=== PATIENT | female | born 1990 | race African-American/Black ===

== ENCOUNTER 2018-06-08 11:46 | Emergency (ER) | payer OTHER ==
[2018-06-08] MEDS ORDERED: LORazepam 2 MG/ML VIAL ONE (12:13)
[2018-06-08] MEDS ORDERED: HALOPERIDOL 5 MG TAB PO ONE (13:00)
--- NOTE | 2018-06-08 13:25 | EDPHYS ---
Physician Documentation [facility] Name: Regi Schafer Age: 27 yrs Sex: Female : 1990 Arrival Date: 06/08/2018 Time: 11:47 Bed 17 Private MD: ED Physician Santy Vivar HPI: 06/08 12:02 This 27 yrs old Black Female presents to ER via Ambulatory with complaints of Psych jr8 Problem. 12:02 The patient presents to the emergency department with anxiety, psychosis, has jr8 experienced auditory hallucinations. Onset: The symptoms/episode began/occurred gradually, 2 day(s) ago. Past psychiatric history: Prior diagnosis: bipolar disorder, schizophrenia. Associated signs and symptoms: The patient has no apparent associated signs or symptoms. Severity of symptoms: At their worst the symptoms were moderate in the emergency department the symptoms are unchanged. The patient has experienced similar episodes in the past, a few times. The patient has not recently seen a physician. Patient stated that she is almost out of her meds and has been skipping doses to try and stay on them as long as possible. Stated that she has money to get new medications but not enough for her psych appointment to get them refilled. Hearing voices to tell her to act out. Denies SI/HI or voices telling her to do such. 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 tw2 Historical: - Allergies: 11:51 No Known Allergies; ss - Home Meds: 11:51 trazodone Oral [Active]; Lamictal 100 mg Oral tab 1 tab once daily [Active]; Trileptal ss oral oral [Active]; Seroquel 100 mg Oral tab 1 tab 3 times per day [Active]; 13:11 Concerta 18 mg oral tr24 1 tab once daily [Active]; tw2 - PMHx: 11:51 Bipolar disorder; Schizophrenia; Depression; Anxiety; Seizures; ss - Immunization history:: Adult Immunizations up to date. - Social history:: Smoking status: Patient uses tobacco products, 1 pp week. - Ebola Screening: : Patient denies exposure to infectious person Patient denies travel to an Ebola-affected area in the 21 days before illness onset. ROS: 12:02 Constitutional: Negative for fever, chills, and weight loss. jr8 12:02 Psych: Positive for anxiety, auditory hallucinations, insomnia, Negative for homicidal ideation, suicide gesture, suicidal ideation. 12:02 All other systems are negative. Exam: 12:02 Eyes: Pupils equal round and reactive to light, extra-ocular motions intact. Lids and jr8 lashes normal. Conjunctiva and sclera are non-icteric and not injected. Cornea within normal limits. Periorbital areas with no swelling, redness, or edema. ENT: Nares patent. No nasal discharge, no septal abnormalities noted. Tympanic membranes are normal and external auditory canals are clear. Oropharynx with no redness, swelling, or masses, exudates, or evidence of obstruction, uvula midline. Mucous membranes moist. Neck: Trachea midline, no thyromegaly or masses palpated, and no cervical lymphadenopathy. Supple, full range of motion without nuchal rigidity, or vertebral point tenderness. No Meningismus. Cardiovascular: Regular rate and rhythm with a normal S1 and S2. No gallops, murmurs, or rubs. Normal PMI, no JVD. No pulse deficits. Respiratory: Lungs have equal breath sounds bilaterally, clear to auscultation and percussion. No rales, rhonchi or wheezes noted. No increased work of breathing, no retractions or nasal flaring. Abdomen/GI: Soft, non-tender, with normal bowel sounds. No distension or tympany. No guarding or rebound. No evidence of tenderness throughout. Back: No spinal tenderness. No costovertebral tenderness. Full range of motion. Skin: Warm, dry with normal turgor. Normal color with no rashes, no lesions, and no evidence of cellulitis. MS/ Extremity: Pulses equal, no cyanosis. Neurovascular intact. Full, normal range of motion. Neuro: Awake and alert, GCS 15, oriented to person, place, time, and situation. Cranial nerves II-XII grossly intact. Motor strength 5/5 in all extremities. Sensory grossly intact. Cerebellar exam normal. Normal gait. 12:02 Psych: Behavior/mood is anxious, Affect is animated, Oriented to person, place, time, Patient has no thoughts/intents to harm self or others. Judgement / Insight is normal. Memory is normal. Delusions/hallucinations are present and described as non specific voices telling her to act out . Vital Signs: 11:51 BP 127 / 86; Pulse 62; Resp 23; Temp 98.3(O); Pulse Ox 98% on R/A; Height 5 ft. 5 in. ss (165.10 cm); Pain 8/10; 13:29 BP 131 / 62; Pulse 61; Resp 17; Pulse Ox 99% on R/A; Pain 0/10; tw2 MDM: 11:48 Patient medically screened. jr8 12:55 Data reviewed: vital signs, nurses notes, and as a result, I will discharge patient. jr8 Data interpreted: Pulse oximetry: on room air is 98 %. Interpretation: normal. Counseling: I had a detailed discussion with the patient and/or guardian regarding: the historical points, exam findings, and any diagnostic results supporting the discharge/admit diagnosis, the need for outpatient follow up, a psychiatrist, to return to the emergency department if symptoms worsen or persist or if there are any questions or concerns that arise at home. Response to treatment: the patient's symptoms have markedly improved after treatment. ED course: patient resting comfortably in exam room. Voices has calmed down. Will refill meds for her. Administered Medications: 12:07 Drug: Ativan 2 mg Route: IM; Site: right deltoid; ss 13:25 Follow up: Response: No adverse reaction; Marked relief of symptoms tw2 12:15 Drug: Haldol 5 mg Route: PO; iw 13:28 Follow up: Response: No adverse reaction; Marked relief of symptoms tw2 Disposition: 14:23 Co-signature as Attending Physician, Santy Vivar MD. pa2 Disposition: 06/08/18 13:25 Discharged to Home. Impression: Schizophrenia, Auditory hallucinations. - Condition is Stable. - Discharge Instructions: Schizophrenia, Psychosis. - Prescriptions for Seroquel 100 mg Oral tablet - take 1 tablet by ORAL route 3 times per day; 90 tablet. Trileptal 600 mg Oral tablet - take 1 tablet by ORAL route At bedtime; 30 tablet. Lamictal 100 mg Oral Tablet - take 1 tablet by ORAL route once daily; 30 tablet. trazodone 50 mg Oral tablet - take 1 tablet by ORAL route At bedtime; 30 tablet. - Medication Reconciliation Form, Thank You Letter, Antibiotic Education, Prescription Opioid Use form. - Follow up: Private Physician; When: 1 week; Reason: Recheck today's complaints, Continuance of care, Re-evaluation by your physician. - Problem is new. - Symptoms have improved. Signatures: Nathalie Camargo, RN RN Lyn Mederos RN RN Guerrero Calixto PA PA jr8 Lesa Armstrong RN RN tw2 Santy Vivar MD MD ma2 Corrections: (The following items were deleted from the chart) 13:11 11:51 Home Meds: CONCERTA Oral; ss tw2 13:31 13:25 06/08/2018 13:25 Discharged to Home. Impression: Schizophrenia; Auditory tw2 hallucinations. Condition is Stable. Prescriptions for Seroquel 100 mg Oral tablet - take 1 tablet by ORAL route 3 times per day; 90 tablet, Trileptal 600 mg Oral tablet - take 1 tablet by ORAL route At bedtime; 30 tablet, Lamictal 100 mg Oral Tablet - take 1 tablet by ORAL route once daily; 30 tablet, trazodone 50 mg Oral tablet - take 1 tablet by ORAL route At bedtime; 30 tablet. and Forms are Medication Reconciliation Form, Thank You Letter, Antibiotic Education, Prescription Opioid Use. Follow up: Private Physician; When: 1 week; Reason: Recheck today's complaints, Continuance of care, Re-evaluation by your physician. Problem is new. Symptoms have improved. jr8
--- NOTE | 2018-06-08 13:25 | ER ---
Nurse's Notes [facility] Name: Regi Schafer Age: 27 yrs Sex: Female : 1990 Arrival Date: 06/08/2018 Time: 11:47 Bed 17 Private MD: Diagnosis: Schizophrenia;Auditory hallucinations Presentation: 06/08 11:47 Presenting complaint: EMS states: Patient states that she is hearing voices telling her ss to act out and not be herself, but not to hurt herself. Denies SI/ HI. Pt reports that she no longer has insurance so she has been taking her medication every other day, but over the past 2-3 days she has not taken anything so now she is hearing voices. Transition of care: patient was not received from another setting of care. Onset of symptoms was June 07, 2018. Risk Assessment: Do you want to hurt yourself or someone else? Patient reports no desire to harm self or others. Initial Sepsis Screen: Does the patient meet any 2 criteria? No. Patient's initial sepsis screen is negative. Does the patient have a suspected source of infection? No. Patient's initial sepsis screen is negative. Care prior to arrival: None. 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 tw2 Historical: - Allergies: 11:51 No Known Allergies; ss - Home Meds: 11:51 trazodone Oral [Active]; Lamictal 100 mg Oral tab 1 tab once daily [Active]; Trileptal ss oral oral [Active]; Seroquel 100 mg Oral tab 1 tab 3 times per day [Active]; 13:11 Concerta 18 mg oral tr24 1 tab once daily [Active]; tw2 - PMHx: 11:51 Bipolar disorder; Schizophrenia; Depression; Anxiety; Seizures; ss - Immunization history:: Adult Immunizations up to date. - Social history:: Smoking status: Patient uses tobacco products, 1 pp week. - Ebola Screening: : Patient denies exposure to infectious person Patient denies travel to an Ebola-affected area in the 21 days before illness onset. Screenin:50 Abuse screen: Denies threats or abuse. Denies injuries from another. Nutritional ss screening: No deficits noted. Tuberculosis screening: Never had TB. Fall Risk None identified. Assessment: 11:47 General: Appears distressed, uncomfortable, Behavior is cooperative, anxious, Reports ss using medication sparingly. Has not taken any medication for the past few days. Denies fever, feeling ill, fatigue, chills. Pain: Complains of pain in head in entire Pain currently is 8 out of 10 on a pain scale. Quality of pain is described as throbbing, Pain began last night Is continuous. Neuro: Level of Consciousness is awake, alert, obeys commands, Oriented to person, place, time, situation. Neuro: Reports auditory hallucinations. Denies SI/ HI . Pt states she has multiple personalities, but she is doing her best to keep Regi in charge. . Cardiovascular: Heart tones S1 S2 present Capillary refill < 3 seconds is brisk in bilateral fingers. Respiratory: Airway is patent Respiratory effort is even, unlabored, Respiratory pattern is regular, symmetrical. GI: Patient currently denies abdominal pain, diarrhea, nausea, vomiting. : No signs and/or symptoms were reported regarding the genitourinary system. EENT: Nares are clear Oral mucosa is moist. Denies nasal congestion, nasal discharge. Derm: Skin is intact, is healthy with good turgor, Skin is dry, Skin is pink, warm \T\ dry. normal. Musculoskeletal: Circulation, motion, and sensation intact. Range of motion: intact in all extremities, Swelling absent. 12:30 Reassessment: Patient appears in no apparent distress at this time. Patient and/or ss family updated on plan of care and expected duration. Pain level reassessed. Patient is alert, oriented x 3, equal unlabored respirations, skin warm/dry/pink. pt appears much more calm at this time. States that her mother is on the way to visit her. Patient states feeling better. Patient states symptoms have improved. 13:29 Reassessment: Patient appears in no apparent distress at this time. Patient and/or tw2 family updated on plan of care and expected duration. Pain level reassessed. Patient is alert, oriented x 3, equal unlabored respirations, skin warm/dry/pink. Patient states feeling better. Patient states symptoms have improved. Vital Signs: 11:51 BP 127 / 86; Pulse 62; Resp 23; Temp 98.3(O); Pulse Ox 98% on R/A; Height 5 ft. 5 in. ss (165.10 cm); Pain 8/10; 13:29 BP 131 / 62; Pulse 61; Resp 17; Pulse Ox 99% on R/A; Pain 0/10; tw2 ED Course: 11:47 Patient arrived in ED. ss 11:48 Guerrero Calixto PA is PHCP. jr8 11:48 Santy Vivar MD is Attending Physician. jr8 11:49 Triage completed. ss 11:50 Patient has correct armband on for positive identification. Bed in low position. Call ss light in reach. Side rails up X 1. 11:50 Patient maintains SpO2 saturation greater than 95% on room air. ss 11:51 Arm band placed on right wrist. 11:56 Lyn Mederos, ALENA is Primary Nurse. 13:30 No provider procedures requiring assistance completed. Patient did not have IV access tw2 during this emergency room visit. Administered Medications: 12:07 Drug: Ativan 2 mg Route: IM; Site: right deltoid; 13:25 Follow up: Response: No adverse reaction; Marked relief of symptoms tw2 12:15 Drug: Haldol 5 mg Route: PO; 13:28 Follow up: Response: No adverse reaction; Marked relief of symptoms tw2 Outcome: 13:25 Discharge ordered by . jr8 13:30 Discharged to home ambulatory, with family. tw2 13:30 Condition: stable 13:30 Discharge instructions given to patient, family, Instructed on discharge instructions, follow up and referral plans. no drinking with medication, no driving heavy equipment, medication usage, Demonstrated understanding of instructions, follow-up care, medications, Prescriptions given X 4. 13:31 Patient left the ED. tw2 Signatures: Nathalie Camargo RN RN Lyn Mederos RN RN Guerrero Calixto PA PA jr8 Lesa Armstrong RN RN tw2 Corrections: (The following items were deleted from the chart) 13:11 11:51 Home Meds: CONCERTA Oral; tw2
[2018-06-08 13:43] VITALS: TEMP 98.3
[2018-06-08 13:45] VITALS: BP 131/62; O2SAT 99
== END 2018-06-08 13:31 | disposition home or self-care (01) ==
LOC: ER 11:46
DX: F20.9 Schizophrenia, unspecified (principal); F31.9 Bipolar disorder, unspecified; F32.9 Major depressive disorder, single episode, unspecified; F41.9 Anxiety disorder, unspecified; G40.909 Epilepsy, unspecified, not intractable, without status epilepticus; Z72.0 Tobacco use
CPT/HCPCS: 96372; 99284

== ENCOUNTER 2019-05-04 19:53 | Inpatient (IN) | payer SELFPAY, OTHER ==
[~2019-05-04 19:53] MED LIST: LORazepam 2 MG/ML VIAL ONE
[2019-05-04] MEDS ORDERED: LORazepam 2 MG/ML VIAL ONE ×2 (20:07→20:42)
[2019-05-04] MEDS ORDERED: NA CHLORIDE 0.9% 2,000 ML ONE (20:21)
[2019-05-04 20:37] LABS: Basophils % 0.6 % (0-1.3); Hematocrit 42.7 % (36.0-45.0); Lymphocytes % 28.3 % (15.3-44.8); MPV 10.3 fL (7.6-11.3); RBC Red Blood Cell Count 4.62 M/uL (3.86-4.86)
[2019-05-04 20:42] LABS: Protime INR 0.96
[2019-05-04] MEDS ORDERED: FOSPHENYTOIN PE 100 MG/2 ML VIAL ONE (20:44)
[2019-05-04] MEDS ORDERED: NA CHLORIDE 0.9% 100 ML IV ONE (20:46)
[2019-05-04] MEDS ORDERED: FOSPHENYTOIN PE 500 MG/10 ML VIAL ONE (20:47)
--- NOTE | 2019-05-04 21:05 | RAD REPORT ---
EXAM DESCRIPTION: RAD - Chest Single View - 05/04/2019 8:55 pm CLINICAL HISTORY: DYSPNEA Chest pain. COMPARISON: No comparisons FINDINGS: Portable technique limits examination quality. The lungs are grossly clear. The heart is normal in size. No displaced fractures. IMPRESSION: No acute intrathoracic process suspected.
[2019-05-04 21:07] LABS: ALT/SGPT 10 U/L (12-78); AST/SGOT 11 U/L (15-37); Albumin 3.4 g/dL (3.4-5.0); Alkaline Phosphatase 68 U/L (45-117); BUN Blood Urea Nitrogen 8 mg/dL (7-18); Bicarbonate 24 mmol/L (21-32); Bilirubin Direct 0.1 mg/dL (0-0.2); Bilirubin Total 0.5 mg/dL (0.2-1.0); Creatine Phosphokinase 61 U/L (26-192); Glucose Level 70 mg/dL (74-106); Potassium 3.5 mmol/L (3.5-5.1); Protein, Total 7.2 g/dL (6.4-8.2); Sodium Level 142 mmol/L (136-145); Troponin (Emerg Dept Use Only) < 0.02 ng/mL (0.0-0.045)
[2019-05-04] MEDS ORDERED: D5 0.9 NS 1,000 ML IV ONE (22:02)
[2019-05-04] MEDS ORDERED: D50W 25 GM/50 ML SYRINGE/VIAL IV ONE (22:03)
--- NOTE | 2019-05-04 22:04 | ER ---
Nurse's Notes [facility] Name: Regi Schafer Age: 28 yrs Sex: Female : 1990 Arrival Date: 05/04/2019 Time: 19:58 Bed 2 Private MD: Diagnosis: Epilepsy and recurrent seizures;Fever, unspecified;Hypoglycemia, unspecified Presentation: 05/03 19:45 Chief complaint: EMS states: Called for patient having chest pain, witnessed seizure x3 lp1 by EMS; Patient post ictal per EMS, with agonal breathing; Per EMS, family states patient was in [place] about 2 weeks ago, has had symptoms of dry cough, chest pain, shortness of breath, fever; On arrival, patient improved. 19:45 Coronavirus screen: Surgical mask placed on patient. Patient moved to private room, lp1 placed in contact and droplet isolation with eye protection until further assessment. Patient reports a cough. Patient reports shortness of breath or difficulty breathing. Ebola Screen: No symptoms or risks identified at this time. Initial Sepsis Screen: Does the patient meet any 2 criteria? No. Patient's initial sepsis screen is negative. Does the patient have a suspected source of infection? No. Patient's initial sepsis screen is negative. Risk Assessment: Do you want to hurt yourself or someone else? Patient reports no desire to harm self or others. 19:45 Method Of Arrival: EMS: [facility] lp1 19:45 Acuity: ASH 2 lp1 Historical: - Allergies: 20:37 No Known Allergies; lp1 - Home Meds: 20:37 Dilantin Oral [Active]; Xanax Oral [Active]; lp1 - PMHx: 20:37 Anxiety; Bipolar disorder; Depression; Schizophrenia; Seizures; lp1 - Immunization history:: Adult Immunizations up to date. Screenin:00 Abuse screen: Denies threats or abuse. Nutritional screening: No deficits noted. jb4 Tuberculosis screening: No symptoms or risk factors identified. Fall Risk Secondary diagnosis (15 points) seizures, IV access (20 points). Total Andrews Fall Scale indicates Low Risk Score (25-44 pts). Fall prevention measures have been instituted. Side Rails Up X 2 Placed close to Nursing Station Frequent Obs/Assesments occuring. Assessment: 20:00 Reassessment: Patient appears more calm at this time; states "I've been taking my lp1 Dilantin every other day since I'm running low"; Provider notified. 20:00 General: Appears in no apparent distress. uncomfortable, Behavior is cooperative, jb4 anxious, confused... Pain: Complains of pain in chest Pain does not radiate. Pain currently is 5 out of 10 on a pain scale. Neuro: Level of Consciousness is awake, alert, obeys commands, Oriented to person, time. Cardiovascular: Patient's skin is warm and dry. Respiratory: Airway is patent Respiratory effort is even, unlabored, Respiratory pattern is regular, symmetrical. GI: No signs and/or symptoms were reported involving the gastrointestinal system. : No signs and/or symptoms were reported regarding the genitourinary system. EENT: No signs and/or symptoms were reported regarding the EENT system. Derm: Skin is intact, Skin is dry, Skin is pale, Skin temperature is warm. Musculoskeletal: Circulation, motion, and sensation intact. Range of motion: intact in all extremities. 21:45 Reassessment: Patient appears in no apparent distress at this time. Patient and/or jb4 family updated on plan of care and expected duration. Pain level reassessed. Patient is alert, oriented x 3, equal unlabored respirations, skin warm/dry/pink. Pt's BGL is 56. Provider notified, see MAR for orders. 22:45 Reassessment: Patient appears in no apparent distress at this time. Patient and/or jb4 family updated on plan of care and expected duration. Pain level reassessed. Patient is alert, oriented x 3, equal unlabored respirations, skin warm/dry/pink. 23:39 Reassessment: Patient appears in no apparent distress at this time. Patient and/or jb4 family updated on plan of care and expected duration. Pain level reassessed. Patient is alert, oriented x 3, equal unlabored respirations, skin warm/dry/pink. Bgl is 78. 05/04 00:35 Reassessment: Patient appears in no apparent distress at this time. Patient and/or jb4 family updated on plan of care and expected duration. Pain level reassessed. Patient is alert, oriented x 3, equal unlabored respirations, skin warm/dry/pink. 01:00 Reassessment: Patient appears in no apparent distress at this time. Patient and/or jb4 family updated on plan of care and expected duration. Pain level reassessed. Patient is alert, oriented x 3, equal unlabored respirations, skin warm/dry/pink. Pt transferred upstairs via stretcher. IV's remain patent without s/s of phlebitis or infiltration. Iv's converted to saline lock. Vital Signs: 05/03 19:45 BP 141 / 95; Pulse 97; Resp 13; Pulse Ox 100% on 2 lpm NC; lp1 20:39 Weight 86.18 kg (R); lp1 20:39 Temp 99.6(O); jb4 20:45 Weight 72.57 kg (R); jb4 21:00 BP 105 / 62; Pulse 91; Resp 27; Pulse Ox 100% on 2 lpm NC; jb4 22:00 BP 121 / 71; Pulse 93; Resp 15; Pulse Ox 100% on 2 lpm NC; jb4 23:00 BP 102 / 74; Pulse 73; Resp 18; Pulse Ox 100% on 2 lpm NC; jb4 23:30 BP 99 / 66; Pulse 78; Resp 17; Pulse Ox 100% on R/A; jb4 05/04 00:35 BP 98 / 59; Pulse 74; Resp 17; Temp 98.6(A); Pulse Ox 100% on 2 lpm NC; jb4 ED Course: 05/03 19:55 Patient has correct armband on for positive identification. teletypesetter monitor on. Pulse lp1 ox on. NIBP on. 19:58 Patient arrived in ED. jb4 20:00 Guerrero Calixto PA is PHCP. jr8 20:00 Santy Vivar MD is Attending Physician. jr8 20:00 Arm band placed on right wrist. jb4 20:15 Initial lab(s) drawn, by ar, sent to lab. First set of blood cultures drawn. jb4 20:30 Inserted saline lock: 22 gauge in left wrist, using aseptic technique. jb4 20:30 Second set of blood cultures drawn by me. jb4 20:37 Triage completed. lp1 20:51 James Gonzalez, ALENA is Primary Nurse. jb4 20:55 Chest Single View XRAY In Process Unspecified. EDMS 22:03 Santy Arredondo MD is Hospitalizing Provider. jr8 05/04 01:00 No provider procedures requiring assistance completed. Patient admitted, IV remains in jb4 place. 09:06 [facility] Dept notified COVID test sent to the lab/ PUI # [id number]/ lab notified. eb Administered Medications: 05/03 20:15 Drug: Ativan 2 mg Route: IVP; Site: right antecubital; jb4 21:00 Follow up: Response: No adverse reaction; Marked relief of symptoms jb4 20:30 Drug: NS 0.9% (30 ml/kg) 30 ml/kg Route: IV; Rate: bolus; Site: right antecubital; jb4 22:30 Follow up: Response: No adverse reaction; IV Status: Completed infusion; IV Intake: jb4 2000ml 20:30 Drug: Ativan 2 mg Route: IVP; Site: right antecubital; jb4 21:00 Follow up: Response: No adverse reaction; Marked relief of symptoms jb4 20:52 Drug: CEREbyx 1 grams Route: IVPB; Site: right antecubital; jb4 21:07 Follow up: Response: No adverse reaction; IV Status: Completed infusion; IV Intake: jb4 100ml 22:00 Drug: D5-NS 1000 ml Route: IV; Rate: 75 ml/hr; Site: right antecubital; jb4 05/04 01:00 Follow up: Response: No adverse reaction; IV Status: Infusion continued upon admission jb4 05/03 22:05 Drug: D50W 50 ml Route: IVP; Site: left wrist; jb4 23:38 Follow up: Response: No adverse reaction; Marked relief of symptoms jb4 Intake: 21:07 IV: 100ml; Total: 100ml. jb4 22:30 IV: 2000ml; Total: 2100ml. jb4 Outcome: 22:03 Decision to Hospitalize by Provider. jr8 05/04 01:00 Admitted to Tele accompanied by nurse, via stretcher, with chart. jb4 Condition: stable Discharge instructions given to patient, Instructed on the need for admit, Demonstrated understanding of instructions. 01:12 Patient left the ED. rr5 Signatures: Dispatcher [employer] EDMS Isabelle Nye RN RN lp1 Guerrero Calixto PA PA jr8 James Gonzalez RN RN jb4 Rosalia Gallo Raymond, RN RN rr5
--- NOTE | 2019-05-04 22:05 | EDPHYS ---
Physician Documentation [facility] Name: Regi Schafer Age: 28 yrs Sex: Female : 1990 Arrival Date: 05/04/2019 Time: 19:58 Bed 2 Private MD: ED Physician Santy Vivar HPI: 05/03 21:49 This 28 yrs old Black Female presents to ER via EMS with complaints of seizure/Fever. jr8 21:49 The patient presents with a history of multiple seizures. Character of seizure(s): Loss jr8 of consciousness: the patient experienced loss of consciousness, Motor activity: generalized, Incontinence: none, Apnea: the patient did not experience apnea, Circulation: the patient did not experience evidence of pulse disturbance, Eye movements: are unknown. Seizure onset: just prior to arrival. Context: the seizure(s) was witnessed, by EMS personnel, occurred at home. Seizure Hx: Original onset: longstanding. Associated injury: The patient did not suffer any apparent associated injury. Current symptoms: Currently, the patient is not experiencing any symptoms, the patient feels back to baseline, no decreased level of consciousness, no confusion, no dysphasia, no headache, no paralysis, no visual changes. The patient has experienced similar episodes in the past, a few times. The patient has not recently seen a physician. Patient stated that she has been rationing her dilantin at home. Has had fever for the past 4 days. Started to have seizures tonight. Family called EMS. Stated that she has had recent difficulty breathing, cough, loss of taste. Historical: - Allergies: 20:37 No Known Allergies; lp1 - Home Meds: 20:37 Dilantin Oral [Active]; Xanax Oral [Active]; lp1 - PMHx: 20:37 Anxiety; Bipolar disorder; Depression; Schizophrenia; Seizures; lp1 - Immunization history:: Adult Immunizations up to date. ROS: 21:49 Eyes: Negative for injury, pain, redness, and discharge, Neck: Negative for injury, jr8 pain, and swelling, Abdomen/GI: Negative for abdominal pain, nausea, vomiting, diarrhea, and constipation, Back: Negative for injury and pain, MS/Extremity: Negative for injury and deformity, Skin: Negative for injury, rash, and discoloration. 21:49 Constitutional: Positive for fever. 21:49 Cardiovascular: Positive for chest pain. 21:49 Respiratory: Positive for cough, shortness of breath. 21:49 Neuro: Positive for seizure activity. Exam: 21:49 Head/Face: Normocephalic, atraumatic. Eyes: Pupils equal round and reactive to light, jr8 extra-ocular motions intact. Lids and lashes normal. Conjunctiva and sclera are non-icteric and not injected. Cornea within normal limits. Periorbital areas with no swelling, redness, or edema. ENT: Nares patent. No nasal discharge, no septal abnormalities noted. Tympanic membranes are normal and external auditory canals are clear. Oropharynx with no redness, swelling, or masses, exudates, or evidence of obstruction, uvula midline. Mucous membranes moist. Neck: Trachea midline, no thyromegaly or masses palpated, and no cervical lymphadenopathy. Supple, full range of motion without nuchal rigidity, or vertebral point tenderness. No Meningismus. Abdomen/GI: Soft, non-tender, with normal bowel sounds. No distension or tympany. No guarding or rebound. No evidence of tenderness throughout. Back: No spinal tenderness. No costovertebral tenderness. Full range of motion. Skin: Warm, dry with normal turgor. Normal color with no rashes, no lesions, and no evidence of cellulitis. MS/ Extremity: Pulses equal, no cyanosis. Neurovascular intact. Full, normal range of motion. Neuro: Awake and alert, GCS 15, oriented to person, place, time, and situation. Cranial nerves II-XII grossly intact. Motor strength 5/5 in all extremities. Sensory grossly intact. Cerebellar exam normal. Normal gait. 21:49 Cardiovascular: Rate: tachycardic, Rhythm: regular, Pulses: Pulses are 2+ in right radial artery and left radial artery. Heart sounds: normal, normal S1and S2, no S3 or S4, no murmur, no rub, no gallop, Edema: is not appreciated. 21:49 Respiratory: the patient does not display signs of respiratory distress, Respirations: tachypnea, that is mild, Breath sounds: are clear throughout, no bronchial sounds, no decreased breath sounds, no rales, rhonchi, no stridor, no wheezing. Vital Signs: 19:45 BP 141 / 95; Pulse 97; Resp 13; Pulse Ox 100% on 2 lpm NC; lp1 20:39 Weight 86.18 kg (R); lp1 20:39 Temp 99.6(O); jb4 20:45 Weight 72.57 kg (R); jb4 21:00 BP 105 / 62; Pulse 91; Resp 27; Pulse Ox 100% on 2 lpm NC; jb4 22:00 BP 121 / 71; Pulse 93; Resp 15; Pulse Ox 100% on 2 lpm NC; jb4 23:00 BP 102 / 74; Pulse 73; Resp 18; Pulse Ox 100% on 2 lpm NC; jb4 23:30 BP 99 / 66; Pulse 78; Resp 17; Pulse Ox 100% on R/A; jb4 05/04 00:35 BP 98 / 59; Pulse 74; Resp 17; Temp 98.6(A); Pulse Ox 100% on 2 lpm NC; jb4 MDM: 05/03 20:00 Patient medically screened. [facility] 21:49 Data reviewed: vital signs, nurses notes, lab test result(s), EKG, radiologic studies, [facility] plain films. Data interpreted: Pulse oximetry: on room air is 100 %. Interpretation: normal. Counseling: I had a detailed discussion with the patient and/or guardian regarding: the historical points, exam findings, and any diagnostic results supporting the discharge/admit diagnosis, lab results, radiology results. ED course: Patient had two more seizures while in ED. Has now had a total of 4 of ativan and 1 gram of Cerebryx . 22:02 ED course: Patient glucose dropped and is now on D5 NS.. Will admit to medicine to [facility] ensure stability of patient . 05/03 19:59 Order name: Flu; Complete Time: 21:45 [facility] 05/03 19:59 Order name: Strep; Complete Time: 21:45 [facility] 05/03 19:59 Order name: Misc. Lab Test [facility] 05/03 20:02 Order name: Basic Metabolic Panel; Complete Time: 21:45 [facility] 05/03 20:02 Order name: Blood Culture Adult (2) [facility] 05/03 20:02 Order name: CBC with Diff; Complete Time: 21:45 [facility] 05/03 20:02 Order name: CPK; Complete Time: 21:45 [facility] 05/03 20:02 Order name: Lactate; Complete Time: 21:45 [facility] 05/03 20:02 Order name: LFT's; Complete Time: 21:45 [facility] 05/03 20:02 Order name: Procalcitonin; Complete Time: 21:45 [facility] 05/03 20:02 Order name: Protime (+inr); Complete Time: 21:45 [facility] 05/03 20:02 Order name: Ptt, Activated; Complete Time: 21:45 [facility] 05/03 20:02 Order name: Troponin (emerg Dept Use Only); Complete Time: 21:45 [facility] 05/03 20:02 Order name: Urine Microscopic Only [facility] 05/03 19:59 Order name: Chest Single View XRAY; Complete Time: 21:45 [facility] 05/03 20:02 Order name: UDS [facility] 05/03 20:37 Order name: Throat Culture [facility] 05/03 22:02 Order name: Urine Dipstick--Ancillary (enter results) [facility] 05/03 22:02 Order name: Urine --Ancillary (enter results) [facility] 05/03 22:31 Order name: Urine Culture [facility] 05/03 23:30 Order name: CBC with Automated Diff [facility] 05/03 23:30 Order name: CBC with Automated Diff [facility] 05/03 23:30 Order name: Comprehensive Metabolic Panel [facility] 05/03 23:30 Order name: Comprehensive Metabolic Panel [facility] 05/03 23:39 Order name: Glucose, Ancillary Testing [facility] 05/03 23:48 Order name: Glucose, Ancillary Testing [facility] 05/03 20:02 Order name: Cath; Complete Time: 22:14 [facility] 05/03 20:02 Order name: Accucheck; Complete Time: 22:14 [facility] 05/03 20:02 Order name: Cardiac monitoring; Complete Time: 21:30 [facility] 05/03 20:02 Order name: EKG - Nurse/Tech; Complete Time: 21:30 [facility] 05/03 20:02 Order name: IV Saline Lock - Large Bore; Complete Time: 21:30 [facility] 05/03 20:02 Order name: Labs collected and sent; Complete Time: 21:30 [facility] 05/03 20:02 Order name: O2 Per Protocol; Complete Time: 22:14 [facility] 05/03 20:02 Order name: O2 Sat Monitoring; Complete Time: 22:14 [facility] 05/03 20:02 Order name: Urine Dipstick-Ancillary (obtain specimen); Complete Time: 22:14 [facility] 05/03 20:02 Order name: Urine Test (obtain specimen); Complete Time: 22:14 [facility] 05/03 23:30 Order name: CONS Pharmacy Consult [facility] 05/03 23:30 Order name: CONS Physician Consult [facility] 05/03 23:30 Order name: Regular EDRI Administered Medications: 20:15 Drug: Ativan 2 mg Route: IVP; Site: right antecubital; jb4 21:00 Follow up: Response: No adverse reaction; Marked relief of symptoms jb4 20:30 Drug: NS 0.9% (30 ml/kg) 30 ml/kg Route: IV; Rate: bolus; Site: right antecubital; jb4 22:30 Follow up: Response: No adverse reaction; IV Status: Completed infusion; IV Intake: jb4 2000ml 20:30 Drug: Ativan 2 mg Route: IVP; Site: right antecubital; jb4 21:00 Follow up: Response: No adverse reaction; Marked relief of symptoms jb4 20:52 Drug: CEREbyx 1 grams Route: IVPB; Site: right antecubital; jb4 21:07 Follow up: Response: No adverse reaction; IV Status: Completed infusion; IV Intake: jb4 100ml 22:00 Drug: D5-NS 1000 ml Route: IV; Rate: 75 ml/hr; Site: right antecubital; jb4 05/04 01:00 Follow up: Response: No adverse reaction; IV Status: Infusion continued upon admission jb4 05/03 22:05 Drug: D50W 50 ml Route: IVP; Site: left wrist; jb4 23:38 Follow up: Response: No adverse reaction; Marked relief of symptoms jb4 Disposition: 05/04/19 22:03 Hospitalization ordered by Santy Arredondo for Observation. Preliminary diagnosis are Epilepsy and recurrent seizures, Fever, unspecified, Hypoglycemia, unspecified. - Bed requested for Telemetry/MedSurg (observation). - Status is Observation. rr5 - Condition is Stable. - Problem is new. - Symptoms have improved. Addendum: 05/06/2019 02:11 Co-signature as Attending Physician, Santy head a2 Signatures: Dispatcher [employer] [facility] Radha Holt RN RN dw Isabelle Nye, RN RN lp1 Guerrero Calixto PA PA jr8 James Gonzalez, RN RN jb4 Santy Vivar MD MD ma2 Bhavesh Andersen, RN RN rr5 Corrections: (The following items were deleted from the chart) 05/03 23:37 22:03 Hospitalization Ordered by Santy Arredondo MD for Observation. Preliminary dw diagnosis is Epilepsy and recurrent seizures; Fever, unspecified; Hypoglycemia, unspecified. Bed requested for Telemetry/MedSurg (observation). Status is Observation. Condition is Stable. Problem is new. Symptoms have improved. jr8 23:41 23:37 05/04/2019 22:03 Hospitalization Ordered by Santy Arredondo MD for Observation. dw Preliminary diagnosis is Epilepsy and recurrent seizures; Fever, unspecified; Hypoglycemia, unspecified. Bed requested for Telemetry/MedSurg (observation). Status is Observation. Condition is Stable. Problem is new. Symptoms have improved. 05/04 01:12 05/03 23:41 05/04/2019 22:03 Hospitalization Ordered by Santy Arredondo MD for rr5 Observation. Preliminary diagnosis is Epilepsy and recurrent seizures; Fever, unspecified; Hypoglycemia, unspecified. Bed requested for Telemetry/MedSurg (observation). Status is Observation. Condition is Stable. Problem is new. Symptoms have improved. dw
[2019-05-04 22:28] LABS: Urine Bacteria >50 /HPF (<20); Urine Culture Reflex Order REFLEXED; Urine RBC NONE SEEN /HPF (NONE SEEN); Urine Urothelial Cells <5 /HPF (NONE SEEN)
[2019-05-04 22:29] LABS: Urine Blood NEGATIVE (NEG); Urine Glucose NEGATIVE (NEG); Urine Protein NEGATIVE (NEG); Urine pH 6.5 (5.0-7.0)
[2019-05-04 22:36] LABS: Barbiturates NEGATIVE (NEGATIVE); Benzodiazepines POSITIVE (NEGATIVE); Cocaine POSITIVE (NEGATIVE); METHAMPHETAM NEGATIVE (NEGATIVE); Methadone NEGATIVE (NEGATIVE); Opiates NEGATIVE (NEGATIVE); Phencyclidine NEGATIVE (NEGATIVE); THC Cannibis POSITIVE (NEGATIVE)
[2019-05-04] MEDS ORDERED: MORPHINE 2 MG/ML SYR IV PRN (23:19)
[2019-05-04] MEDS ORDERED: ACETAMINOPHEN 500 MG TAB PO PRN (23:19)
[2019-05-04] MEDS ORDERED: ONDANSETRON 4 MG/2 ML VIAL IV PRN (23:19)
[2019-05-04] MEDS ORDERED: levETIRAcetam 500 MG in NA CHLORIDE 0.9% 100 ML IV SCH (23:30)
[2019-05-05 02:25] VITALS: BMI 26.8
[2019-05-05] MEDS: NA CHLORIDE 0.9% 1,000 ML IV SCH ×3 (02:46→17:56)
[2019-05-05 06:20] LABS: Absolute Lymphocytes (CBC) 2.6 K/uL (0.7-4.9); Basophils % 0.8 % (0-1.3); Hematocrit 36.5 % (36.0-45.0); Lymphocytes % 25.8 % (15.3-44.8); MPV 9.4 fL (7.6-11.3); RBC Red Blood Cell Count 3.95 M/uL (3.86-4.86)
[2019-05-05 06:53] LABS: ALT/SGPT 9 U/L (12-78); AST/SGOT 9 U/L (15-37); Albumin 2.7 g/dL (3.4-5.0); Alkaline Phosphatase 50 U/L (45-117); BUN Blood Urea Nitrogen 6 mg/dL (7-18); Bicarbonate 23 mmol/L (21-32); Bilirubin Total 0.5 mg/dL (0.2-1.0); Glucose Level 80 mg/dL (74-106); Protein, Total 5.7 g/dL (6.4-8.2); Sodium Level 143 mmol/L (136-145)
[2019-05-05] MEDS ORDERED: levETIRAcetam 500 MG in NA CHLORIDE 0.9% 100 ML IV SCH (07:30)
[2019-05-05] MEDS ORDERED: BENZONATATE 100 MG CAP PO PRN (07:35)
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
[2019-05-05 08:56] VITALS: O2SAT 97
[2019-05-05] MEDS ORDERED: levETIRAcetam 250 MG in NA CHLORIDE 0.9% 100 ML IV ONE (12:15)
--- NOTE | 2019-05-05 12:23 | P.PN ---
Subjective Date of Service: 05/05/19 Chief Complaint: Seizures/coughing/polysubstance abuse Still with cough & fever. Seizure episode this morning lasting 1-2 mins, witnessed by nursing. Physical Examination - Vital Signs Temperature: 98.2 F Blood Pressure: 99/57 Pulse: 71 Respirations: 18 Pulse Ox (%): 99 - Physical Exam General: Alert, In no apparent distress HEENT: Atraumatic, PERRLA, EOMI Neck: Supple, JVD not distended Respiratory: Diminished, Crackles/rales (RLL) Cardiovascular: Regular rate/rhythm, Normal S1 S2 Gastrointestinal: Normal bowel sounds, No tenderness Musculoskeletal: No tenderness Integumentary: No rashes Neurological: Normal speech, Normal tone, Normal affect Lymphatics: No axilla or inguinal lymphadenopathy - Studies Laboratory Data (last 24 hrs) 05/04/19 20:00: PT 11.3, INR 0.96, APTT 23.9 L 05/04/19 20:00: WBC 10.5, Hgb 14.2, Hct 42.7, Plt Count 277 05/04/19 20:00: Sodium 142, Potassium 3.5, BUN 8, Creatinine 1.03, Glucose 70 L , Total Bilirubin 0.5, AST 11 L, ALT 10 L, Alkaline Phosphatase 68 Microbiology Data (last 24 hrs): 05/04/19 20:00 Nasopharnyx Influenza Type A Antigen Screen - Final 05/04/19 20:00 Nasopharnyx Influenza Type B Antigen Screen - Final 05/04/19 20:00 Throat Group A Streptococcus Rapid Screen - Final Medications List Reviewed: Yes Assessment & Plan Physician Review Additional Text: Ms. Schafer is 28 y/o female pw #Cough & Fever- Suspected COVID19 Virus infection. - Continue droplet isolation. Tmax 99.6 since admission. - CXR is unremarkable. No leukocytosis. Procal is neg. - Supportive measures; antitussive #Breakthrough seizure- due to non compliance. - Hold off on CT brain unless otherwise indicated. -Resumed antiepileptics. On dilantin at home, unknown dose. -check level and titrate meds -also on keppra. Seizure precaution -Dr Foley on consult. No EEG, quick technician is quarantined. # Polysubstance abuse- UDS positive for THC and cocaine. -argumentative and not interested in quitting use. States that her seizures are controlled with substance. -cessation strongly advised. #UTI- UA positive, Urine culture prelim with [id number] - probably the etiology of reported fever -Follow final culture -initiate ceftriaxone DVT ppx-SCD patient is full code.
[2019-05-05] MEDS: CEFTRIAXONE/SWI 1gm 1 GM/10 ML SYR IV SCH (13:29)
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
[2019-05-05] MEDS: LORazepam 2 MG/ML VIAL IV PRN ×2 (17:50→20:31)
[2019-05-05] MEDS: levETIRAcetam 750 MG in NA CHLORIDE 0.9% 100 ML IV SCH (20:19)
[2019-05-05] MEDS ORDERED: PHENYTOIN ER 100 MG CAP PO SCH (21:00)
[2019-05-06] MEDS: NA CHLORIDE 0.9% 1,000 ML IV SCH ×2 (04:00→18:15)
[2019-05-06 06:39] LABS: Absolute Lymphocytes (CBC) 2.4 K/uL (0.7-4.9); Basophils % 0.8 % (0-1.3); Hematocrit 34.8 % (36.0-45.0); Lymphocytes % 31.8 % (15.3-44.8); MPV 10.2 fL (7.6-11.3); RBC Red Blood Cell Count 3.75 M/uL (3.86-4.86)
[2019-05-06 07:09] LABS: BUN Blood Urea Nitrogen 5 mg/dL (7-18); Bicarbonate 23 mmol/L (21-32); Glucose Level 80 mg/dL (74-106); Potassium 3.8 mmol/L (3.5-5.1); Sodium Level 142 mmol/L (136-145)
[2019-05-06] MEDS: levETIRAcetam 750 MG in NA CHLORIDE 0.9% 100 ML IV SCH (08:40)
[2019-05-06] MEDS: CEFTRIAXONE/SWI 1gm 1 GM/10 ML SYR IV SCH (08:40)
[2019-05-06] MEDS: LORazepam 2 MG/ML VIAL IV PRN (09:43)
[2019-05-06] MEDS ORDERED: NA CHLORIDE 0.9% IV STA (10:06)
[2019-05-06] MEDS ORDERED: PHENYTOIN IV STA (10:06)
[2019-05-06] MEDS ORDERED: PHENYTOIN IV SCH (11:00)
[2019-05-06] MEDS ORDERED: NA CHLORIDE 0.9% IV SCH (11:00)
--- NOTE | 2019-05-06 12:06 | RAD REPORT ---
EXAM DESCRIPTION: CT - Ct Stroke Brain Wo Cont - 05/06/2019 11:55 am CLINICAL HISTORY: numbness to left side Headache, drowsiness, CVA symptomology COMPARISON: MAXILLOFACIAL W O CONTRAST dated 01/18/2012; HEAD BRAIN W O CONTRAST dated 12/03/2009 TECHNIQUE: All CT scans are performed using dose optimization technique as appropriate and may inclu de automated exposure control or mA/KV adjustment according to patient size. FINDINGS: No intracranial hemorrhage, hydrocephalus or extra-axial fluid collection.No areas of brai n edema or evidence of midline shift. The paranasal sinuses and mastoids are clear. The calvarium is intact. Hardware is present left orbit al floor. IMPRESSION: No acute intracranial abnormality. The findings were left on voicemail for Dr. Vegas On 04/26/2019 at 12:02 p.m. by telephone.
[2019-05-06 12:40] LABS: Absolute Lymphocytes (CBC) 1.7 K/uL (0.7-4.9); Basophils % 0.4 % (0-1.3); Hematocrit 40.3 % (36.0-45.0); Lymphocytes % 16.2 % (15.3-44.8); MPV 10.8 fL (7.6-11.3)
[2019-05-06 12:52] LABS: Albumin 3.3 g/dL (3.4-5.0); Bilirubin Total 0.3 mg/dL (0.2-1.0); Potassium 3.8 mmol/L (3.5-5.1); Protein, Total 6.8 g/dL (6.4-8.2)
[2019-05-06 12:55] LABS: Protime INR 0.98
[2019-05-06] MEDS ORDERED: LORazepam 2 MG/ML VIAL ONE (13:11)
[2019-05-06 13:39] LABS: Blood Morphology Comment NOT SEEN (NOT SEEN); Platelet Estimate ADEQ
--- NOTE | 2019-05-06 14:08 | P.PN ---
Subjective Date of Service: 05/06/19 Chief Complaint: Seizures/coughing/polysubstance abuse COVID19 ruled out. Multiple episodes of ?seizure episodes this morning; reported inability to feel LUE after an episode of seizure thus CT brain completed without any acute finding. Patient remained with pressured speech, argumentative, crying spells. Decided to leave AMA; then had another episode of ?seizure out in the parking lot and was brought back into the hospital. Intermittent hallucination. Physical Examination - Vital Signs Temperature: 98.8 F Blood Pressure: 127/94 Pulse: 93 Respirations: 20 Pulse Ox (%): 100 - Physical Exam General: Alert, In no apparent distress HEENT: Atraumatic, PERRLA, EOMI Neck: Supple, JVD not distended Respiratory: Clear to auscultation bilaterally, Normal air movement Cardiovascular: Regular rate/rhythm, Normal S1 S2 Gastrointestinal: Normal bowel sounds, No tenderness Musculoskeletal: No tenderness Integumentary: No rashes Neurological: Normal speech, Normal tone, Abnormal affect Lymphatics: No axilla or inguinal lymphadenopathy - Studies Laboratory Tests 05/04/19 05/05/19 05/06/19 21:58 12:15 12:03 WBC 10.8 D Neutrophils % 75.1 H Absolute Neutrophils 8.1 H Sodium Chloride BUN AST Albumin/Globulin Ratio Opiates Screen Negative Phenytoin 8.9 L Benzodiazepines Screen Positive H Cocaine Screen Positive H 05/06/19 12:03 WBC Neutrophils % Absolute Neutrophils Sodium 142 Chloride 112 H BUN 5 L AST 11 L Albumin/Globulin Ratio 0.9 L Opiates Screen Phenytoin Benzodiazepines Screen Cocaine Screen Medications List Reviewed: Yes Assessment & Plan Physician Review Additional Text: Ms. Schafer is 28 y/o female pw #Breakthrough seizure- due to non compliance. CT brain is unremarkable. -Resumed antiepileptics. On dilantin at home, unknown dose. Declined to provide pharmacy for verification. -subtherapeutic, increased dilantin. -also on keppra. Seizure precaution -Dr Foley on consult. 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 -possible pseudoseizures based on description of episodes. no postictal. -insists that she will not take her meds after discharge due to affordability. Offered all assistance possible, she declined. #Mental health diagnosis- per record, has h/o schizophrenia and bipolar. - appears to be manic. - patient with poor insight to disease and remains argumentative and hostile. - consult psych for assistance. -sitter at bedside #Cough & Fever- Suspected COVID19 Virus infection, now ruled out. - Tmax 99.6 since admission. - CXR is unremarkable. No leukocytosis. Procal is neg. # Polysubstance abuse- UDS positive for THC and cocaine. -argumentative and not interested in quitting use. States that her seizures are controlled with substance. -cessation strongly advised. #UTI- UA positive, Urine culture prelim with [id number] - probably the etiology of reported fever -Follow final culture -initiated ceftriaxone DVT ppx-SCD patient is full code.
[2019-05-06 16:31] VITALS: BP 117/70; TEMP 98
[2019-05-06] MEDS ORDERED: lamoTRIgine 100 MG TAB PO SCH (18:00)
[2019-05-06] MEDS ORDERED: OXcarbazepine 150 MG TAB PO SCH ×2 (21:00)
[2019-05-06] MEDS ORDERED: TRAZODONE 50 MG TABLET PO SCH (21:00)
[2019-05-06] MEDS ORDERED: QUETIAPINE 100MG TAB PO SCH (21:00)
[2019-05-07] MEDS ORDERED: PHENYTOIN ER 100 MG CAP PO SCH ×2 (09:00)
--- NOTE | 2019-05-07 09:16 | P.DS ---
Admission Date: 05/04/19 Discharge Date: 05/06/19 Disposition: AMA-LEFT AGAINST MEDICAL ADVIC Reason for Admission: Seizures/coughing/polysubstance abuse Consultations: Neurologist Psychiatrist Brief History of Present Illness: Admission diagnosis-suspected covid 19 infection Breakthrough seizure Polysubstance abuse Discharge diagnosis-breakthrough seizure. Mental health issues Polysubstance abuse Urinary tract infection COVID19 ruled out Hospital Course: Ms. Schafer is 28-year-old female with history of seizure disorder who presented to the hospital after breakthrough seizure. Patient has been noncompliant with medication at home due to affordability. She was initiated on loading dose of fosphenytoin and Keppra. She also reported a nonproductive cough, shortness of breath with subjective fever at home. Patient was isolated with droplet precaution and tested for COVID19 which was negative. Patient continued to have seizures versus pseudoseizures in the hospital. 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 She was followed by neurologist and medications were being titrated. She has a history of polysubstance abuse and UDS was positive for benzodiazepine, THC and cocaine. She was not taking her anti epileptics due to affordability. Patient continued to have epsiodes of agitation, pressured speech and manic episodes while in-house. Psychiatrist was consulted however patient left against medical advice prior to being seen. Vital Signs/Physical Exam: Temp Pulse Resp BP Pulse Ox 98 F 87 18 117/70 18 L 05/06/19 16:00 05/06/19 16:00 05/06/19 16:00 05/06/19 16:00 05/06/19 16:00 Laboratory Data at Discharge: WBC 10.8 K/uL (4.3-10.9) D 05/06/19 12:03 Hgb 13.4 g/dL (12.0-15.0) 05/06/19 12:03 Hct 40.3 % (36.0-45.0) D 05/06/19 12:03 Plt Count 251 K/uL (152-406) 05/06/19 12:03 PT 11.6 SECONDS (9.5-12.5) 05/06/19 12:03 INR 0.98 05/06/19 12:03 APTT 31.6 SECONDS (24.3-36.9) 05/06/19 12:03 Sodium 142 mmol/L (136-145) 05/06/19 12:03 Potassium 3.8 mmol/L (3.5-5.1) 05/06/19 12:03 BUN 5 mg/dL (7-18) L 05/06/19 12:03 Creatinine 1.07 mg/dL (0.55-1.3) 05/06/19 12:03 Glucose 102 mg/dL (74-106) 05/06/19 12:03 Magnesium 1.9 mg/dL (1.8-2.4) 05/05/19 12:53 Total Bilirubin 0.3 mg/dL (0.2-1.0) 05/06/19 12:03 AST 11 U/L (15-37) L 05/06/19 12:03 ALT 13 U/L (12-78) 05/06/19 12:03 Alkaline Phosphatase 61 U/L (45-117) 05/06/19 12:03 Home Medications: OXcarbazepine [Trileptal*] 600 mg PO BEDTIME 05/06/19 Quetiapine [Seroquel*] 100 mg PO TID 05/06/19 Trazodone [Desyrel*] 50 mg PO BEDTIME 05/06/19 lamoTRIgine [Lamictal*] 100 mg PO DAILY 05/06/19
--- NOTE | 2019-05-09 05:29 | EKG ---
Test Date: 2019-05-06 Test Time: 12:01:36 Vp Product Management: FABIAN MEASUREMENT RESULTS: Intervals: Rate: 74 [place]: 152 QRSD: 80 QT: 350 QTc: 388 [place]: P: 67 [place]: 152 QRS: 66 T: 61 INTERPRETIVE STATEMENTS: Normal sinus rhythm Normal ECG Compared to ECG 02/12/2011 21:41:10 No significant changes Electronically Signed On 05-09-19 05:26:31 CDT by Clarence Ziegler
== END 2019-05-06 19:40 | disposition left against medical advice (07) | DRG 101 ==
LOC: ER 19:53 → OBSVTOIN 23:37 → ERHOLD 23:37 → 4TH 05-05 00:53 → UNDODISIN 05-06 12:44 → 4TH 05-06 13:18
PROVIDERS: ADMIT Hospitalist; ATTEND Hospitalist
DX: G40.89 Other seizures (principal); N39.0 Urinary tract infection, site not specified; Z16.12 Extended spectrum beta lactamase (ESBL) resistance; B96.20 Unspecified Escherichia coli [E. coli] as the cause of diseases classified elsewhere; Z03.818 Encounter for observation for suspected exposure to other biological agents ruled out; Z91.14 Patient's other noncompliance with medication regimen; Z91.120 Patient's intentional underdosing of medication regimen due to financial hardship; Z79.899 Other long term (current) drug therapy; R05 Cough; R50.9 Fever, unspecified; F17.200 Nicotine dependence, unspecified, uncomplicated; F10.10 Alcohol abuse, uncomplicated; F19.10 Other psychoactive substance abuse, uncomplicated
CPT/HCPCS: 36415; 70450; 71045; 80048; 80053; 80076; 80177; 80185; 80307; 81003; 81015; 81025; 82550; 82947; 83605; 83735; 84145; 84484; 85025; 85610; 85730; 87040; 87070; 87077; 87081; 87086; 87088; 87186; 87804; 93005; 96361; 96374; 96375; 99285; J0696; J1165; J1953; J7030; J7042; Q2009; U0001